=== PATIENT | female | born 1930 | race Caucasian/White ===

== ENCOUNTER 2018-12-01 23:08 | Inpatient (IN) | payer MEDICARE ==
[2018-12-01] VITALS (32 sets, daily range): BP systolic 141–155; BP diastolic 82–91; PULSE 67; TEMP 97.7; O2SAT 88–100
[~2018-12-01] VITALS: Ht 152.4 cm; Wt 62.8 kg
--- NOTE | 2018-12-01 21:18 | NUR ---
Called [facility] in [facility] and received report from CELY Antonio. Patient has not yet been picked up by EMS, but will call when she has.
--- NOTE | 2018-12-01 22:37 | NUR ---
EMS deandre at this time to notify they are 10mins away with the patient and she has been stable throughout the ride.
--- NOTE | 2018-12-01 22:54 | NUR ---
Patient arrives at this time via EMS stretcher. Patient transfers self to unit bed by sliding over. Patient attached to unit monitoring equipment. Assessment complete. Patient has some +1 edema in her BLE, and her right lower lobe of the lung is diminshed. Patient has active bowel sounds and a normal sounding heart with S1 and S2 present. Patient's daughter Kecia is at the bedside. Educated patient and Kecia about the unit and how to use the call light. Patient has complaints of 8/10 back pain, but says it is chronic and constant, but is relieved with position changes. Assisted patient to new position, states she is more comfortable now. No further needs at this time. Will continue to monitor. Call light within reach.
--- NOTE | 2018-12-01 23:00 | NUR ---
Levophed drip restarted at this time after removed from EMS pump. Started at 0.1mcg/kg/min.
[2018-12-01] MEDS ORDERED: TYLENOL 325MG325 MG PO (23:17)
[2018-12-01] MEDS ORDERED: PRIL40 PO (23:17)
[2018-12-01] MEDS ORDERED: ASPIRIN E.C. 8181 MG PO (23:18)
[2018-12-01] MEDS ORDERED: CARDIZEM120 MG PO (23:19)
[2018-12-01] MEDS ORDERED: LASIX 20MG TABL20 MG PO (23:20)
[2018-12-01] MEDS ORDERED: ZESTRIL 10MG10 MG PO (23:20)
[2018-12-01] MEDS ORDERED: LOPRESSOR 550 MG/TAB PO (23:22)
[2018-12-01] MEDS ORDERED: K-DUR 10 MEQ T10 MEQ PO (23:23)
[2018-12-02] VITALS (374 sets, daily range): BP systolic 101–130; BP diastolic 52–80; PULSE 65–79; TEMP 97.7–98.7; O2SAT 82–100
[2018-12-02] MEDS ORDERED: DAILY MULTIPLE1 T19 PO (01:13)
[2018-12-02 03:48] LABS: HEMATOCRIT 27.5 % (37.0-47.0); HEMOGLOBIN 8.7 g/dl (12.5-16.0); MEAN CELL VOLUME 96 fl (80.0-100.0); MEAN CORPUSCULAR HEMOGLOBIN 30 pg (27.0-31.0); MEAN CORPUSCULAR HGB CONC 32 g/dl (33.0-37.0); MEAN PLATELET VOLUME 11.6 fl (7.4-10.4); PLATELET COUNT 121 K/mm3 (130-400); RED BLOOD COUNT 2.88 M/mm3 (4.10-5.30); REDCELL DISTRIBUTION WIDTH-CV 13.9 % (11.5-14.5)
[2018-12-02 03:57] LABS: BILIRUBIN,TOTAL 0.9 mg/dL (0.0-1.0); CALCIUM 8.7 mg/dL (8.4-10.2); CREATININE, serum 1.38 (0.52-1.25); POTASSIUM 4.3 mmol/L (3.4-5.0); TOTAL PROTEIN 5.2 gm/dL (6.4-8.2)
--- NOTE | 2018-12-02 04:00 | NUR ---
Patient sleeping at this time but awakens easily. Assessment complete. No changes from previous exam. Vitals remain stable. Patient only has complaints of the chronic pain in her back, but doesn't want any medication for it. Patient has no further needs. Will continue to monitor. Call light within reach.
[2018-12-02 04:20] LABS: BAND 1 % (0-10); BASOPHIL 2 % (0-2); EOSINOPHIL 1 % (0-4); LYMPHOCYTE 42 % (20.0-51.0); NEUTROPHILS 52 % (42.0-75.2)
[2018-12-02 04:21] LABS: HYPOCHROMIA 2+; PLATELET ESTIMATE DECREASED (NORMAL); SCHISTOCYTES 2+; TEAR DROP CELLS 1+
[2018-12-02 04:22] LABS: OVALOCYTES 1+; POLYCHROMASIA 1+
--- NOTE | 2018-12-02 07:00 | NUR ---
Bedside report received from CELY Peacock. Patient lying in bed with no complaints. Care taken over at this time.
[2018-12-02 07:20] LABS: HEMATOCRIT 26.3 % (37.0-47.0); HEMOGLOBIN 8.5 g/dl (12.5-16.0)
--- NOTE | 2018-12-02 07:20 | NUR ---
Bedside report given to CELY Davis
--- NOTE | 2018-12-02 10:07 | NUR ---
ROCHELLE and ROCHELLE student met with the patient and patient's daughters (Kecia and Ellen) to discuss discharge plan. The patient lives alone in [place]. She reports independence with ADLs and has a walker. The patient's PCP is Dr. Ashkan Preciado and she receives her medications at [facility]. Her daughter informed ROCHELLE that the patient does not have a drug prescription plan and that the patient has a hard time affording meds that are not generic. The patient does not have advanced directives in EMR, but she states that she does have them completed. She states that her PCP's office or the [facility] should have a copy. ROCHELLE contacted her PCP's office. They did not have a copy. ROCHELLE contacted the [facility] and requested a copy. The patient plans to return home upon discharge. PT/OT have been ordered. SW to continue to follow to ensure a safe discharge.
[2018-12-02 10:25] LABS: PH 5 (5-8); SQUAMOUS EPITHELIAL 0-2 /hpf; URINE APPEARANCE Clear; URINE BACTERIA None Seen /hpf; URINE BILIRUBIN Negative (NEGATIVE); URINE BLOOD Negative (NEGATIVE); URINE COLOR Yellow; URINE GLUCOSE Negative (NEGATIVE); URINE KETONE Negative (NEGATIVE); URINE LEUKOCYTE ESTERASE Trace (NEGATIVE); URINE NITRATE Negative (NEGATIVE); URINE PROTEIN(semi-quant) Negative (NEGATIVE); URINE RBC 0-2 /hpf; URINE UROBILINOGEN Negative (NEGATIVE)
--- NOTE | 2018-12-02 11:51 | NUR ---
First visit from the pharmacy services representative. No needs right now.
[2018-12-02 11:58] LABS: COLLECTION METHOD CLEAN CATCH
--- NOTE | 2018-12-02 12:30 | NUR ---
Report given to CELY Seo. Plan of care discussed. Care turned over at this time.
--- NOTE | 2018-12-02 13:32 | NUR ---
SW received the patient's DNR and Natural Act Declaration, via fax, from [facility]. SW placed in the patient's chart. SW to inform the patient that we received those documents, but not her DPOA-HC.
--- NOTE | 2018-12-02 15:00 | NUR ---
Left anticubital IV infiltrated while NS infusing. Site swollen, red and tender to palpation. Arm elevated. MD Aleksandra on unit, notifed, and observed by MD. Ordered to continue elevation, place warm blankets until K-Pad heater can be placed. K-pad applied, placed on low heat setting.
--- NOTE | 2018-12-02 19:27 | NUR ---
RECEIVED REPORT FROM CELY VALLE. PATIENT WAS LAYING IN BED. FLUIDS VARIFIED. WILL CONTINUE TO MONITOR PATIENT.
--- NOTE | 2018-12-02 22:01 | NUR ---
PATIENT IS CURRENTLY SLEEPING.
--- NOTE | 2018-12-02 22:58 | NUR ---
PATIENT IS CURRENTLY IN BED AT THIS TIME. DENIES HAVING PAIN.
[2018-12-03] VITALS (452 sets, daily range): BP systolic 86–134; BP diastolic 54–80; PULSE 23–104; TEMP 97.6–98; O2SAT 60–100
--- NOTE | 2018-12-03 00:32 | NUR ---
PATIENT IS CURRENTLY ASLEEP IN BED. PATIENT IS DENYING PAIN AT THIS TIME.
--- NOTE | 2018-12-03 05:04 | NUR ---
PATIENT IS RESTING IN BED.
[2018-12-03 05:59] LABS: HEMATOCRIT 26.1 % (37.0-47.0); HEMOGLOBIN 8.3 g/dl (12.5-16.0); MEAN CELL VOLUME 97 fl (80.0-100.0); MEAN CORPUSCULAR HEMOGLOBIN 31 pg (27.0-31.0); MEAN CORPUSCULAR HGB CONC 32 g/dl (33.0-37.0); MEAN PLATELET VOLUME 11.7 fl (7.4-10.4); PLATELET COUNT 104 K/mm3 (130-400); REDCELL DISTRIBUTION WIDTH-CV 14.1 % (11.5-14.5)
[2018-12-03 06:11] LABS: CALCIUM 8.4 mg/dL (8.4-10.2); CREATININE, serum 1.29 (0.52-1.25); POTASSIUM 3.8 mmol/L (3.4-5.0)
--- NOTE | 2018-12-03 06:22 | NUR ---
PATIENT IS ASLEEP IN BED.
[2018-12-03 06:30] LABS: BASOPHIL 1 % (0-2); LYMPHOCYTE 32 % (20.0-51.0); NEUTROPHILS 65 % (42.0-75.2); PLATELET ESTIMATE DECREASED (NORMAL)
--- NOTE | 2018-12-03 07:30 | NUR ---
GAVE REPORT TO CELY ESPINAL.
--- NOTE | 2018-12-03 07:30 | NUR ---
Bedside report received from CELY Harrington.
--- NOTE | 2018-12-03 08:00 | NUR ---
Assessment completed. Pt watching tv in bed. No complaints at this time. Discussed medications due this AM with pt. Pt verbalized understanding. Pt ordering breakfast now. Call light in reach.
--- NOTE | 2018-12-03 10:40 | NUR ---
Pt HR in Afib 80-100s. EKG ordered and RT notified. Pt has no complaints at this time.
--- NOTE | 2018-12-03 11:07 | NUR ---
EKG done. Cardiology paged and Cintia with Dr Wilson called back. Notified pt is now in Afib 80-100s. no changes at this time.
--- NOTE | 2018-12-03 11:51 | NUR ---
Anesthesia notified of elective cardioversion today at [address] Wilson.
--- NOTE | 2018-12-03 13:16 | NUR ---
SW received the patient's DPOA-HC and DPOA-HC for finances. SW placed in the patient's chart.
--- NOTE | 2018-12-03 13:34 | NUR ---
ROCHELLE and ROCHELLE student met with the patient to review discharge plan and discuss home health services. The patient reports that she thinks being set up with home health would be a good idea. ROCHELLE then presented the patient with Medicare.gov's list of home health agencies that serve [place]. The patient chose [facility]. ROCHELLE then contacted and faxed a referral to Zoraida at [facility]. SW awaiting their screening.
--- NOTE | 2018-12-03 14:15 | NUR ---
Pt shocked once with 200J for cardioversio. HR now SR on monitor. RT notified of stat EKG. Pt still resting, arouses to name but goes back to sleep when not stimulated. VSS.
--- NOTE | 2018-12-03 16:00 | NUR ---
Pt resting in bed, easily arousable. VSS. no complaints at this time.
--- NOTE | 2018-12-03 18:00 | NUR ---
Pt's family at bedside. Updated them on plan of care r/t cardioversion and amiodarone gtt. Pt and pt's family verbalized understanding. All questions answered to their satisfaction.
--- NOTE | 2018-12-03 20:45 | NUR ---
PT DENIES PAIN. RHYTHM IS REGULAR. PT A&O X3.
[2018-12-04] VITALS (243 sets, daily range): BP systolic 118–133; BP diastolic 58–95; PULSE 69–81; TEMP 96.9–97.7; O2SAT 71–100
[2018-12-04 05:30] LABS: MEAN CELL VOLUME 96 fl (80.0-100.0); MEAN CORPUSCULAR HGB CONC 32 g/dl (33.0-37.0); MEAN PLATELET VOLUME 11.7 fl (7.4-10.4); PLATELET COUNT 104 K/mm3 (130-400)
[2018-12-04 05:32] LABS: HEMOGLOBIN 8.2 g/dl (12.5-16.0); MEAN CORPUSCULAR HEMOGLOBIN 30 pg (27.0-31.0)
[2018-12-04 05:40] LABS: CALCIUM 8.3 mg/dL (8.4-10.2); CREATININE, serum 1.25 (0.52-1.25); POTASSIUM 3.6 mmol/L (3.4-5.0)
[2018-12-04 06:14] LABS: ANISOCYTOSIS 1+; BAND 5 % (0-10); EOSINOPHIL 3 % (0-4); HYPOCHROMIA 2+; LYMPHOCYTE 40 % (20.0-51.0); NEUTROPHILS 44 % (42.0-75.2); OVALOCYTES 1+; PLATELET ESTIMATE DECREASED (NORMAL); TEAR DROP CELLS 1+
--- NOTE | 2018-12-04 07:30 | NUR ---
Bedside shift report received from CELY Gooden. Patient awake, alert, and responds appropriately. Full assessment completed. IV medications and peripheral IV assessed and secured. Patient has complaints of back pain, but states that she has been having back pain for years now. Patient is supine in the bed with the head of bed elevated to 45 degrees. Bed in lowest position, call light placed within reach.
--- NOTE | 2018-12-04 10:52 | NUR ---
ROCHELLE received a consult saying that the patient and her daughters are now interested in swing bed. ROCHELLE and ROCHELLE student then met with the patient to follow up and discuss home health vs swing bed. The patient reports that after speaking to her daughters, she is agreeable to go to swing bed. ROCHELLE presented and explained the patient choice form. The patient preferred 1) [facility] 2) [facility]. Patient choice form signed by the patient and she was provided a copy. ROCHELLE contacted and faxed a referral to both facilities. SW awaiting their screenings. The patient's daughter, Kecia, also contacted ROCHELLE and confirmed that the plan is for the patient to go to swing bed. ROCHELLE to continue to follow.
--- NOTE | 2018-12-04 16:57 | NUR ---
Eva, at [facility], reports that they are unable to accept the patient. Leia at [facility] reports that they are still waiting for the doctor to review the referral and that she will contact SW in the morning. SW contacted and updated the patient's daughter, Kecia. SW to continue to follow.
--- NOTE | 2018-12-04 17:58 | NUR ---
Report called to CELY Tineo. All questions answered. Nurse has no complaints or concerns at this time.
--- NOTE | 2018-12-04 18:40 | NUR ---
PATIENT ARRIVED TO ROOM 309 VIA WHEELCHAIR BY ICU STAFF. PATIENT SETTELED INTO ROOM.
--- NOTE | 2018-12-04 18:52 | NUR ---
Patient transferred to medical room 309 via wheelchair with no complications. All personal belongings transferred with the patient. Once in the room, patient was assisted to the bed, bed in lowest position, call light and room phone placed within reach. Patient's family members were in the room when we arrived. Patient's chart is placed in the chart meadows behind the nurses station and CELY Tineo notified of patient's arrival to room. Patient has no complaints or concerns at this time.
--- NOTE | 2018-12-04 19:30 | NUR ---
REPORT GIVEN TO CELY MILLER.
--- NOTE | 2018-12-04 21:34 | NUR ---
Patient arrived to medical floor around 1840, family with patient. Denies having pain and discomfort, stating she just wants to get some sleep tonight. Peripheral IV to RAC is patent, and without s/sx of infiltration or phlebitis. Edema continues to LUE from infiltrated IV site. Declines wanting to elevate LUE on pillow or to have arm wrapped. Denies having any needs or concerns at this time. Resting in bed with eyes closed at this time. Call light is within reach.
--- NOTE | 2018-12-05 03:52 | NUR ---
Patient has been calling for assistance with toileting. Has been complaining SOB and dyspnea with exertion. Denies having pain and discomfort. Left arm elevated on blanket slightly to help decrease edema. Continues to not want QUYEN wrap to arm at this time. NS continues to run at 100 ml/hr to IV site to right AC. Denies having any questions or concerns. Patient has orders for SCDs, but declines to wear them. Resting in bed wtih eyes closed at this time. Call light is within reach.
[2018-12-05 05:06] VITALS: BP 146/66; PULSE 80; TEMP 98.6
[2018-12-05 06:09] LABS: MEAN CELL VOLUME 95 fl (80.0-100.0); MEAN CORPUSCULAR HGB CONC 32 g/dl (33.0-37.0); MEAN PLATELET VOLUME 11.5 fl (7.4-10.4); PLATELET COUNT 117 K/mm3 (130-400); RED BLOOD COUNT 2.78 M/mm3 (4.10-5.30); REDCELL DISTRIBUTION WIDTH-CV 13.9 % (11.5-14.5)
[2018-12-05 06:13] LABS: HEMATOCRIT 26.4 % (37.0-47.0); HEMOGLOBIN 8.4 g/dl (12.5-16.0); MEAN CORPUSCULAR HEMOGLOBIN 30 pg (27.0-31.0)
[2018-12-05 06:22] LABS: CALCIUM 8.5 mg/dL (8.4-10.2); CREATININE, serum 1.11 (0.52-1.25); POTASSIUM 3.5 mmol/L (3.4-5.0)
--- NOTE | 2018-12-05 06:26 | NUR ---
Patient complaining of feeling a sinus headache come on, on left side of forehead. Denies wanting anything at this time. Voices no other needs or concerns at this time. Resting in bed with eyes closed at this time. Call light is within reach.
[2018-12-05 07:26] LABS: EOSINOPHIL 2 % (0-4); LYMPHOCYTE 39 % (20.0-51.0); NEUTROPHILS 53 % (42.0-75.2); PLATELET ESTIMATE DECREASED (NORMAL)
[2018-12-05 07:27] LABS: POLYCHROMASIA 1+
[2018-12-05 07:28] LABS: BURR CELLS 1+
[2018-12-05 07:29] LABS: SCHISTOCYTES 1+
[2018-12-05 07:39] VITALS: BP 139/59; PULSE 76; TEMP 97.5
[2018-12-05 11:35] VITALS: BP 122/58; PULSE 94; TEMP 97.6
--- NOTE | 2018-12-05 12:00 | NUR ---
Pt alert and oriented and am assessment completed. Pt complains of SOB this am and hospitalist and cardiology updated and new orders given for Lasix and potassium. Pt to stay one more day d/t SOB and CXRY showing pleural effusions. Pt started on breathing treatments as ordered and SOB not as bad per pt. Pt RF IV infiltrated and new IV had to be started for IV Lasix. Fluids stopped. Pt has call light in reach and family has been in and out. Pt calls for help to bathroom.
--- NOTE | 2018-12-05 13:33 | NUR ---
[facility] to [facility] assuming they have beds saturday. Not able to accept over weekend. SW to follow.
--- NOTE | 2018-12-05 13:58 | NUR ---
SW met with patient and daughters to inform them of plan. They report someone will be here saturday to transport patient if she is able to discharge.
[2018-12-05 15:45] VITALS: BP 125/67; PULSE 113; TEMP 97.8
[2018-12-05 19:16] VITALS: BP 117/84; PULSE 92; TEMP 97.6
--- NOTE | 2018-12-05 19:47 | NUR ---
Pt stable this afternoon. SOB managed with breathing treatments. Pt calls for help for 1 asssist to restroom. Pt denies chest pain. Pt requested tylenol PM for help to sleep and order obtained if needed. Pt IV remains patent. Pt's arms remain edematous from infiltrations yesterday and today. Pt ate supper. Pt has call light in reach and denies needs at this time. Pt report given Nidhi TA.
--- NOTE | 2018-12-05 20:30 | NUR ---
Initial shift assessment done- denies pain- has some upper extremity edema but is improved, Up to bathroom with stanby assist- steady on feet-
[2018-12-06] VITALS (7 sets, daily range): BP systolic 108–156; BP diastolic 48–78; PULSE 62–95; TEMP 97.3–98.3
[2018-12-06 06:27] LABS: MEAN CELL VOLUME 96 fl (80.0-100.0); MEAN CORPUSCULAR HGB CONC 32 g/dl (33.0-37.0); MEAN PLATELET VOLUME 11.6 fl (7.4-10.4); PLATELET COUNT 138 K/mm3 (130-400); RED BLOOD COUNT 2.84 M/mm3 (4.10-5.30); REDCELL DISTRIBUTION WIDTH-CV 14.2 % (11.5-14.5)
[2018-12-06 06:29] LABS: HEMATOCRIT 27.2 % (37.0-47.0); HEMOGLOBIN 8.6 g/dl (12.5-16.0); MEAN CORPUSCULAR HEMOGLOBIN 30 pg (27.0-31.0)
--- NOTE | 2018-12-06 06:30 | NUR ---
Quiet night- Up to bathroom with assist x3 during this shift- voiding without problems-- arm edema is much improved- did get respiratory treatment during the night for wheezing- pt states it did help--denies being SOB,
[2018-12-06 06:44] LABS: CALCIUM 8.7 mg/dL (8.4-10.2); CREATININE, serum 1.24 (0.52-1.25); POTASSIUM 3.3 mmol/L (3.4-5.0)
[2018-12-06 06:52] LABS: BAND 2 % (0-10); LYMPHOCYTE 46 % (20.0-51.0); NEUTROPHILS 44 % (42.0-75.2)
[2018-12-06 07:42] LABS: PLATELET ESTIMATE NORMAL (NORMAL)
--- NOTE | 2018-12-06 08:15 | NUR ---
Assessment complete.patient awake,a/ox3.denies pain or discomfort at this time.breathing is labored with exertion.pt reports feeling better after lasix was restarted.decreased WOB.insp/exp wheezes noted bilat.all meds given.no other needs voiced at this time.will continue to monitor.call light in reach
--- NOTE | 2018-12-06 19:06 | NUR ---
pt has had an unevenful day.reports feeling better after lasix.working with PT/OT.Telemetry reading SR.continues on breathing treatments.no other needs voiced at this time.
--- NOTE | 2018-12-06 19:08 | NUR ---
report given to CELY Valle
--- NOTE | 2018-12-06 20:12 | NUR ---
PT RESTING IN BED A+Ox4. REPORTS PAIN IN BACK- DENIED NEEDS FOR INTERVENTION RIGHT NOW. EX WHEEZING THROUGHOUT LUNG NUGENT. PT HAS SLIGHT SWELLING IN ANKLES AND FEET. NO NEEDS AT THIS TIME. CALL LIGHT IN REACH
--- NOTE | 2018-12-07 01:30 | NUR ---
PT IN NORMAL SINUS RHYTHM ON TELE. NO PAIN THROUGHOUT NIGHT. PT HAS BEEN SLEEPING DURING NIGHT. NO NEEDS AT THIS TIME.
--- NOTE | 2018-12-07 02:42 | NUR ---
TELE CALLED, PT IN NORMAL SINUS RHYTHM FROM AFIB AT 0100.
--- NOTE | 2018-12-07 02:43 | NUR ---
REPORT GIVEN TO CELY ALATORRE
[2018-12-07 04:03] VITALS: BP 133/54; PULSE 73; TEMP 97.5
--- NOTE | 2018-12-07 07:19 | NUR ---
pt had an uneventful night. reports no pain. pt when to Normal sinus ryhthm from AFIB at 0100. no needs at this time, call light in reach
--- NOTE | 2018-12-07 07:28 | NUR ---
report given to CELY Echevarria. assisted pt to chair, reports no needs at this time
[2018-12-07 07:46] LABS: MEAN CELL VOLUME 95 fl (80.0-100.0); MEAN CORPUSCULAR HGB CONC 30 g/dl (33.0-37.0); MEAN PLATELET VOLUME 11.5 fl (7.4-10.4); PLATELET COUNT 131 K/mm3 (130-400); RED BLOOD COUNT 2.85 M/mm3 (4.10-5.30); REDCELL DISTRIBUTION WIDTH-CV 14.1 % (11.5-14.5)
--- NOTE | 2018-12-07 07:46 | NUR ---
Assessment complete.patient awake,a/ox3.Lung sounds insp/exp wheezes.patient denies pain or discomfort at this time.all meds given.telemetry reading NSR.PT denies any other needs at this time.call light in reach
[2018-12-07 07:47] LABS: HEMOGLOBIN 8.2 g/dl (12.5-16.0); MEAN CORPUSCULAR HEMOGLOBIN 29 pg (27.0-31.0)
[2018-12-07 07:53] VITALS: BP 117/38; PULSE 67; TEMP 97.3
[2018-12-07 08:01] LABS: CREATININE, serum 1.33 (0.52-1.25); POTASSIUM 3.7 mmol/L (3.4-5.0)
[2018-12-07 09:00] LABS: EOSINOPHIL 2 % (0-4); LYMPHOCYTE 47 % (20.0-51.0); NEUTROPHILS 45 % (42.0-75.2); PLATELET ESTIMATE NORMAL (NORMAL)
[2018-12-07 10:37] VITALS: BP 139/58; PULSE 70; TEMP 97.8
[2018-12-07 17:21] VITALS: BP 152/70; PULSE 82; TEMP 97.6
--- NOTE | 2018-12-07 17:49 | NUR ---
ROUNDED ON PT AND DISCUSS OPTIONS REGARD TO THE LUNG MASS.ALSO MENTIONED THAT THE PLEURAL EFFUSIONS DO NOT NEED TO BE DRAINED.NO OTHER NEEDS.
--- NOTE | 2018-12-07 18:15 | NUR ---
PT RESTING IN BED AT THIS TIME.FAMILY AT BEDSIDE.PT REPORTS FEELING BETTER.VSS.STARTED ON PREDNISONE FOR THE WHEEZES.WILL CONTINUE TO MONITOR.CALL LIGHT IN REACH
--- NOTE | 2018-12-07 18:53 | NUR ---
report given to CELY Valle.
[2018-12-07 19:17] VITALS: BP 127/69; PULSE 99; TEMP 97.8
--- NOTE | 2018-12-07 20:04 | NUR ---
tele called, pt when from normal sinus back into AFIB.
[2018-12-07 21:23] VITALS: BP 142/63; PULSE 98; TEMP 98.5
--- NOTE | 2018-12-07 22:17 | NUR ---
PT RESTING IN BED A+OX4. NO PAIN. NO SOA AT THIS TIME. REPORTS SOME SOA WHEN WALKING. SLIGHT SWELLING IN FEET. PT REPORTS A LOOSE BM THIS EVENING. NO NEEDS AT THIS TIME. CALL LIGHT IN REACH
[2018-12-08 00:08] VITALS: BP 123/61; PULSE 87; TEMP 98
--- NOTE | 2018-12-08 00:41 | NUR ---
PT REPORTS NOT BEING ABLE TO SLEEP WITH SCDs ON, PT REFUSED BUT STATED WANTING TO TRY THEM DURING THE DAY.
--- NOTE | 2018-12-08 02:23 | NUR ---
PT reports not being able to fall asleep, warm blacket and PM tylenol given. no pain throughout night. pt in AFIB. vitals stable. no needs at this time. call light in reach
[2018-12-08 03:41] VITALS: BP 122/68; PULSE 87; TEMP 98
--- NOTE | 2018-12-08 06:15 | NUR ---
PT HAD AN UNEVENTFUL NIGHT. NO PAIN DURING NIGHT. REPORTED SOA ONLY WHEN WALKING FOR AN EXTENDED AMOUNT OF TIME. PT IS IN AFIB VIA TELE. TELE ON. PT INDEPENDENT IN ROOM. NO NEEDS AT THIS TIME. CALL LIGHT IN REACH
--- NOTE | 2018-12-08 07:26 | NUR ---
report given to saira Tubbs. pt reports no needs
[2018-12-08 07:29] LABS: HEMATOCRIT 26.1 % (37.0-47.0); HEMOGLOBIN 8.3 g/dl (12.5-16.0); MEAN CELL VOLUME 94 fl (80.0-100.0); MEAN CORPUSCULAR HEMOGLOBIN 30 pg (27.0-31.0); MEAN CORPUSCULAR HGB CONC 32 g/dl (33.0-37.0); MEAN PLATELET VOLUME 11.3 fl (7.4-10.4); PLATELET COUNT 131 K/mm3 (130-400); RED BLOOD COUNT 2.79 M/mm3 (4.10-5.30); REDCELL DISTRIBUTION WIDTH-CV 14.1 % (11.5-14.5)
[2018-12-08 07:46] LABS: CREATININE, serum 1.28 (0.52-1.25)
[2018-12-08 07:51] VITALS: BP 130/64; PULSE 89; TEMP 98.2
[2018-12-08 07:54] LABS: LYMPHOCYTE 59 % (20.0-51.0); MYELOCYTE 1 % (0-0); NEUTROPHILS 35 % (42.0-75.2); PLATELET ESTIMATE DECREASED (NORMAL)
[2018-12-08 08:17] LABS: PATHOLOGY DIFF REVIEW OK +
[2018-12-08] MEDS ORDERED: XOPENEX 0.0.63 MG/3 IH ×2 (08:56→08:57)
[2018-12-08] MEDS ORDERED: LASIX 40MG TABL40 MG PO (08:59)
--- NOTE | 2018-12-08 09:15 | NUR ---
PT is A+OX3, pleasant, denies corine, SOB, needs. Independent in room. Lungs are clear with expiratory phase prolonged and wheezey. On RA. Physical assessment completed. DAVE INt free of redness, swelling, flushes easily. Refusing SCD's. Denies needs, call light in reach
[2018-12-08] MEDS ORDERED: TOPROL XL 25MG25 MG PO (09:36)
[2018-12-08] MEDS ORDERED: PACERONE400 MG PO (09:38)
[2018-12-08] MEDS ORDERED: PREDNISONE20 MG PO (09:39)
--- NOTE | 2018-12-08 10:20 | NUR ---
ROCHELLE met with patient and presented IM. SW verbally discussed the contents. Patient was agreeable and signed the form. Copy provided and original in the chart. Patient is DC today to [facility]. Doc to Doc call made and patient accepted. ROCHELLE faxed discharge and informed Leia patient should leave here around 11am.
[2018-12-08 10:23] VITALS: BP 130/64; PULSE 89; TEMP 98.2
--- NOTE | 2018-12-08 11:00 | NUR ---
This RN gave report to receiving nurse, all questions answered. Pt assisted into home clothes, personal belongings collected. INT removed wit tip intact, site free of redness, swelling. No further needs or questions
== END 2018-12-08 12:46 | disposition swing bed (61) | DRG 280 ==
LOC: ICU 23:08 → MEDICAL 12-04 18:40
PROVIDERS: Family Medicine; Nurse Practitioner; ADMIT Hospitalist
PROC: 5A2204Z Restoration of Cardiac Rhythm, Single (ICD-10-PCS; principal; 2018-12-03)
DX: I21.4 Non-ST elevation (NSTEMI) myocardial infarction (principal); R57.0 Cardiogenic shock; J90 Pleural effusion, not elsewhere classified; N17.9 Acute kidney failure, unspecified; Z66 Do not resuscitate; K80.00 Calculus of gallbladder with acute cholecystitis without obstruction; J44.1 Chronic obstructive pulmonary disease with (acute) exacerbation; K57.32 Diverticulitis of large intestine without perforation or abscess without bleeding; I12.9 Hypertensive chronic kidney disease with stage 1 through stage 4 chronic kidney disease, or unspecified chronic kidney disease; N18.9 Chronic kidney disease, unspecified; I48.91 Unspecified atrial fibrillation; Z95.0 Presence of cardiac pacemaker; D64.9 Anemia, unspecified; Z87.891 Personal history of nicotine dependence; R91.8 Other nonspecific abnormal finding of lung field; E87.6 Hypokalemia
CPT/HCPCS: 99223-AI; 99232-AI; 99233-AI; 99239; A4216; C9113; J0282; J0696; J1940; J2543; J2704; J7030; J7060; J7512